=== PATIENT | female | born 1990 | race Caucasian/White ===

== ENCOUNTER → 2023-10-05 14:02 | Outpatient (REF) | payer OTHER, SELFPAY | LOC: HO.SL 14:02 | PROVIDERS: PCP Internal Medicine; Visit Provider Internal Medicine | DX: R06.83 Snoring (principal) | CPT/HCPCS: 95806 ==

== ENCOUNTER → 2023-10-05 19:00 | Outpatient (BNV) | payer OTHER, SELFPAY | PROVIDERS: PCP Internal Medicine; Visit Provider Internal Medicine | DX: R06.83 Snoring (principal) | CPT/HCPCS: 95806 ==